=== PATIENT | female | born 1985 | race Caucasian/White ===

== ENCOUNTER 2016-09-15 10:00 | Inpatient (IN) | payer OTHER ==
--- NOTE | ~2016-09-15 | HP ---
Unit #: [id number] #: [id number] Patient: DIALLO PRATT [id number] [place] [address] [id number] MR#: [id number] NAME: DIALLO PRATT ROOM: P179 Age: 30 Sex: F Admission Date: 09/15/2016 : 1985 Attending Physician: Arnaud Gilbert M.D. Admitting Physician: Arnaud Gilbert M.D. Primary Care Physician: Kymebrly Marinelli M.D. HISTORY AND PHYSICAL HISTORY OF PRESENT ILLNESS Diallo is a 30 year old[facility]. PAST MEDICAL HISTORY 1. 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 2. History of alcohol abuse. 3. Hepatitis C. PAST SURGICAL HISTORY 1. section x1. 2. Tubal ligation. ALLERGIES Tramadol, (seizures). SOCIAL HISTORY Smokes greater than one pack per day, denies alcohol, admits to long history of illicit substance abuse. FAMILY HISTORY Medically noncontributory. REVIEW OF SYSTEMS CONSTITUTIONAL: No fever or chills. HEENT: Denies any sore throat, ear pain or runny nose. CARDIOVASCULAR: Denies chest pain, irregular heart rhythm or palpitations. CHEST: Denies shortness of breath or cough. No hemoptysis. GASTROINTESTINAL: Denies nausea, vomiting, diarrhea or chronic constipation. ENDOCRINE: Denies history of increased thirst or urination. No recent significant weight loss or gain. GENITOURINARY: Denies dysuria, frequency, or hematuria. SKIN: Denies any rashes. HEMATOLOGIC: Denies history of increased bleeding or bruising. MUSCULOSKELETAL: Denies any hot, swollen joints. No generalized muscle pain. NEUROLOGIC: Denies problems with vision or speech. No frequent, severe headaches. No numbness, tingling or weakness in any extremities. Denies loss of bladder or bowel control. CURRENT MEDICATIONS Detox protocol Unit #: [id number] #: [id number] Patient: DIALLO PRATT PHYSICAL EXAMINATION GENERAL: Alert, well-nourished, no apparent distress. VITAL SIGNS: Blood pressure 100/40, heart rate 80, respirations 16, temperature 98. WEIGHT: 138 pounds. HEIGHT: 5 feet 2 inches. SKIN: Warm and dry without rash or lesion. HEENT: Normocephalic. TMs not viewed. Oral and nasal passages clear. Conjunctivae clear. PERRLA. EOMs intact. NECK: Supple without lymphadenopathy or thyromegaly. HEART: Regular rate and rhythm without murmur. LUNGS: Clear. ABDOMEN: Soft, nontender. : Not done. EXTREMITIES: No evidence of cyanosis, clubbing or edema. Moves all without focal deficit. NEUROLOGICAL: Grossly within normal limits. Cranial Nerves: II: Visual shore are intact. III, IV AND : Extraocular movements are intact. Pupils are equal, round and reactive to light. V: Facial sensation is grossly normal. VII: Facial movements and expression are normal. VIII: Auditory acuity grossly intact. IX, X: Uvula is midline. Phonation is normal. XI: Patient shrugs shoulders and turns head normally. XII: Tongue protrudes in the midline. Sensory and Motor Function: Sensory and motor sensation is grossly normal. Motor: moves all extremities well. Coordination: Gait is normal. Deep Tendon Reflexes: Intact. IMPRESSION Psychiatric admission. RECOMMENDATIONS Psychiatric, per psychiatrist. MEDICAL I see no contraindications to participating in facility's activities. MEDICAL PROGNOSIS Good. MEDICAL CONDITION Stable. Dictated by... Emily Salamanca P.A.-C. for Tony Lynn/chelsie TD: 09/16/2016 12:09 JOB #: [id number] Unit #: [id number] #: [id number] Patient: DIALLO PRATT HISTORY AND PHYSICAL Page 1 of 1 X Emily Salamanca HISTORY AND PHYSICAL
--- NOTE | ~2016-09-15 | PN ---
Unit #: [id number] #: [id number] Patient: DIALLO PRATT [id number] [facility] [address] [place] [address] [id number] MR#: [id number] NAME: DIALLO PRATT ROOM: P179 Age: 30 Sex: F Admission Date: 09/15/2016 : 1985 Attending Physician: Arnaud Gilbert M.D. Admitting Physician: Arnaud Gilbert M.D. Primary Care Physician: Tony Randolph PROGRESS NOTES DATE OF SERVICE 09/17/2016 DISCUSSION Ms. Pratt is a 30-year-old white female with substance abuse and mood disorder who was seen today. Chart was reviewed and case was discussed with the staff. She was anxious, withdrawn, in distress and discomfort. Meanwhile, she has been taking the medications and tolerating them fairly well with no reported side effects. MENTAL STATUS EXAMINATION Young white female who is casually dressed with fair personal hygiene, appears to be in slight distress or discomfort. She was awake and alert on interaction with intact orientation. Her mood is anxious with congruent affect. She denies any suicidal ideations. Her insight and judgment remain slightly impaired. TREATMENT PLAN 1. We will continue her on her current medications and treatment protocol. We will monitor her response to the medications and make further adjustments as needed. 2. We will continue to follow up. Dictated by... Arnaud Gilbert M.D. IAA/bzg TD: 09/17/2016 11:12 JOB #: [id number] EAN PROGRESS NOTES Page 1 of 1 X Arnaud Gilbert MD PROGRESS NOTE
--- NOTE | ~2016-09-15 | PN ---
Unit #: [id number] #: [id number] Patient: DIALLO PRATT [id number] [facility] [address] [place] [address] [id number] I MR#: [id number] NAME: DIALLO PRATT ROOM: P179 Age: 30 Sex: F Admission Date: 09/15/2016 : 1985 Attending Physician: Arnaud Gilbert M.D. Admitting Physician: Arnaud Gilbert M.D. Primary Care Physician: Kymberly Marinelli M.D. PEAEM PROGRESS NOTES DATE September 16, 2016 DISCUSSION Ms. Pratt is a 30-year-old white female, with substance abuse, and mood disorder, who was seen today and chart was reviewed and the case was discussed with the staff. She remains anxious, withdrawn, depressed, seclusive to herself, and reports not feeling good and has been complaining of feelings of hopelessness and helplessness and significant withdrawal. Meanwhile, she has been taking the medications and tolerating them fairly well with no reported side effects. MENTAL STATUS EXAMINATION Young white female, who was casually dressed with fair personal hygiene and appears to be distress and discomfort. She was awake and alert with impaired attention and concentration. Her mood is anxious and depressed with a congruent affect. The patient reports having suicidal ideations but denies any homicidal ideations. Her insight and judgment remain significantly impaired. TREATMENT PLAN 1. We will continue her on her current medications and treatment protocol, and will monitor her response to the medications, and make further adjustments as needed. 2. We will continue to followup. Dictated by... Tony Cuevas/chelsie TD: 09/16/2016 11:40 JOB #: [id number] Unit #: [id number] #: [id number] Patient: DIALLO PRATT PEAEM PROGRESS NOTES Page 1 of 1 X Arnaud Gilbert MD PROGRESS NOTE
--- NOTE | ~2016-09-15 | PA ---
Unit #: [id number] #: [id number] Patient: DIALLO PRATT [id number] [facility] [address] [place] [address] [id number] I MR#: [id number] NAME: DIALLO PRATT ROOM: P179 Age: 30 Sex: F Admission Date: 09/15/2016 : 1985 Date of Assessment: 09/15/2016 Attending Physician: Arnaud Gilbert M.D. Admitting Physician: Arnaud Gilbert M.D. Primary Care Physician: Kymberly Marinelli M.D. PSYCHIATRIC ASSESSMENT DATE OF SERVICE 09/15/2016. IDENTIFYING DATA Ms. Wagoner is a 30-year-old single white female, who is a resident of [place], [place], and is known to us from previous encounter, was self-referred to the hospital on a voluntary basis. CHIEF COMPLAINT "I've been feeling really bad and I'm having really bad thoughts." HISTORY OF PRESENT ILLNESS Ms. Wagoner is a 30-year-old white female with extensive history of substance abuse and dependence and mood disorder, who was self-referred to the hospital and stating that she has been really having bad thoughts and "I've not been on my medication for about 9 months. I've been drinking in the last 48 hours. I feel very hopeless and helpless and I've been depressed and feeling really numb and I'm just ready to and just end it, I might as well. I do feel that I'm going to harm myself. I've thoughts about overdosing and shooting myself if I could get hold of someone's gun that would be quickest, I'm ready to just go. I'm just done. I've been like this for 4 years now. I am confused and I'm lost. I'm a piece of shit. I'm over it and nothing goes right with me. I've been like this for years now. I don't like going around people. I feel intimidated. I feel like people are out to get me and I don't get to see my kids. People that they are staying with seems like they are trying to keep me from them and they do not answer my phone calls, it is complicated, about to give up on that too." She does report increasing depression, anxiety, irritability, restlessness, feelings of hopelessness and helplessness, and suicidal ideations and was seen to be a danger to self and as such, recommendation for inpatient level of care for safety and stabilization was made and the patient was transferred to us. SUBSTANCE ABUSE HISTORY The patient reports extensive history of substance abuse and dependence, and reporting alcohol, cannabis, opioids, and benzodiazepine abuse, and has been drinking regularly and heavily and has been mixing it with other drugs, and at the same time, she has been going to her outpatient provider and has been getting prescriptions of Tylenol No. 3 and Adderall and has been mixing them with alcohol and benzodiazepines. PAST PSYCHIATRIC HISTORY The patient has had history of multiple inpatient psychiatric Unit #: [id number] #: [id number] Patient: DIALLO PRATT hospitalizations at [facility] and other facilities and has been diagnosed and treated for mood disorder and substance abuse and currently she has been noncompliant with medications. PAST MEDICAL HISTORY No acute or chronic medical illnesses. ALLERGIES Tramadol. PERSONAL AND SOCIAL HISTORY A 30-year-old white female, who reports that she is single, unemployed, and lives with her family members and has poor social support system. MENTAL STATUS EXAMINATION Young white female who was casually dressed with fair personal hygiene, appears to be in no acute distress or discomfort. She was awake and alert on interaction with intact orientation to time, place, and person. Her mood was anxious and depressed with a congruent affect. Her speech was slow and restricted in content. Her thought processes were disorganized with some looseness of associations and flight of ideas. Her insight and judgment remain significantly impaired. DIAGNOSTIC IMPRESSION Psychiatric: Major depressive disorder, recurrent, moderate, without psychotic features; opioid dependence, moderate and acute withdrawals; alcohol dependence, moderate and acute withdrawals. Medical: None. Stressors: Moderate psychosocial stressors. TREATMENT PLAN 1. The patient has presented with history of substance abuse and mood disorder, and has been decompensating and will need inpatient hospitalization for detoxification, safety, and stabilization. We will start her back on her home medications and detox protocol will be initiated as well, though we will discontinue her Tylenol No. 3 as well as her Adderall, really questioned the need for prescription of those medications and the provider who is prescribing those medications even knows the patient's history of addiction and excessively using opioids and alcohol and benzodiazepines from the street and at the same time, being prescribed Tylenol No. 3 as well as Adderall. 2. Supportive therapy was provided to the patient. ESTIMATED LENGTH OF STAY 5 to 7 days. ABILITY TO HELP SELF Limited. WILLINGNESS TO HELP SELF The patient appears to be willing to help self. STRENGTHS 1. Communicative. 2. Cooperative. PROBLEMS 1. Chronic dysphoric symptoms. 2. Chronic chemical dependency. Unit #: [id number] #: [id number] Patient: DIALLO PRATT 3. Poor social support system. DISCHARGE CRITERIA This will be contingent upon the patient's ability to show resolution of her depression and anxiety and her ability to stay safe to herself, particularly after discharge from the hospital. Dictated by... Tony Cuevas/lizett TD: 09/16/2016 23:36 JOB #: [id number] PSYCHIATRIC ASSESSMENT Page 1 of 1 X Arnaud Gilbert MD X PSYCHIATRIC ASSESSMENT
--- NOTE | ~2016-09-15 | DS ---
Unit #: [id number] #: [id number] [facility] [id number] [facility] [address] [place] [address] [id number] I MR#: [id number] NAME: DAILLO PRATT ROOM: P179 Age: 30 Sex: F Admission Date: 09/15/2016 : 1985 Discharge Date: 09/17/2016 Attending Physician: Arnaud Gilbert M.D. Primary Care Physician: Kymberly Marinelli M.D. DISCHARGE SUMMARY IDENTIFYING DATA Ms. Pratt is a 30-year-old white female who was self-referred to the hospital. DISCHARGE DIAGNOSES Psychiatric: Opioid dependence, moderate and acute withdrawals; alcohol dependence, moderate; opioid-induced mood disorder. Medical: None. Stressors: Moderate psychosocial stressors. HISTORY OF PRESENT ILLNESS Please see initial psychiatric evaluation for details. PAST PSYCHIATRIC HISTORY Please see initial psychiatric evaluation for details. PAST MEDICAL HISTORY Please see initial psychiatric evaluation for details. HOSPITAL COURSE The patient [facility] and was oriented to the hospital environment. Routine p.r.n. medications were initiated, and she was started back on her home medications. Detox protocol was initiated and she was closely monitored. The patient was seen to be anxious, restless, and also showing poor insight into her situation, poor motivation towards treatment and was wanting to leave and pushing to get to be discharged from the hospital, and denying any suicidal ideations, intent, or plan. She was not meeting criteria for involuntary psychiatric hospitalization and as such, it was decided that she will be discharged home and will continue treatment on an outpatient basis. DISCHARGE MEDICATIONS None. DISCHARGE CONDITION Stable. PROGNOSIS Fair. Dictated by... Arnaud Gilbert M.D. Unit #: [id number] #: [id number] Patient: DIALLO PRATT IAA/modl TD: 10/13/2016 13:58 JOB #: [id number] DISCHARGE SUMMARY Page 1 of 1 X Arnaud Gilbert MD X DISCHARGE SUMMARY
[~2016-09-15 10:00] MED LIST: AMOXICILLIN500 M1 PO; AUGMENTIN PO; BIOTIN; IBUPROFEN PO; KEFLEX PO; KLONOPIN PO; LORTAB 7.5-5001 TAB PO; MORPHINE IR PO; NAPROXEN PO; NEURONTIN PO; SEROQUEL PO; VOLTAREN75 MG PO; WELLBUTRIN PO; ZOLOFT PO; [UNRECOGNIZED DRUG - CODE] PO
[2016-09-16 09:43] LABS: BASOPHIL% 0.6 % (0-2.5); EOSINOPHIL# 0.1 X10e3 (0-0.7); HEMATOCRIT 37.5 % (35.0-45.0); HEMOGLOBIN 12.4 gm/dL (12.0-16.0); LYMPHOCYTE# 2.6 X10e3 (1.0-3.5); LYMPHOCYTE% 45.6 % (17.0-45.0); MEAN CELL VOLUME 85.6 FL (83-96); MEAN CORPUSCULAR HEMOGLOBIN 28.3 PG (28-34); MEAN CORPUSCULAR HGB CONC 33.1 g/dL (30-36); MEAN PLATELET VOLUME 8.1 FL (6.5-11.5); MONOCYTE# 0.4 X10e3 (0-1.0); MONOCYTE% 7.4 % (3.0-12.0); NEUTROPHIL# 2.6 X10e3 (1.5-7.1); NEUTROPHIL% 44.4 % (40-75); PLATELET COUNT 280 X10e3 (140-420); RED BLOOD COUNT 4.38 X10e (3.90-5.30); RED CELL DISTRIBUTION WIDTH 13.6 % (11.0-15.5); WHITE BLOOD COUNT 5.8 X10e3 (4.0-10.5)
[2016-09-16 09:49] LABS: DIFF IND NO
[2016-09-16 10:14] LABS: ALBUMIN SERUM 3.7 g/dL (3.5-5.0); BILIRUBIN,TOTAL 0.3 mg/dL (0.2-2.0); CALCIUM SERUM 8.7 mg/dL (8.4-10.2); CREATININE SERUM 0.5 mg/dL (0.6-1.4); GLOM FILT RATE Estimated 129.9 mL/min (>60); POTASSIUM 4.1 mmol/L (3.5-5.1); PROTEIN TOTAL SERUM 6.8 g/dL (6.0-8.3)
[2016-09-17 13:10] LABS: URINE APPEARANCE CLEAR; URINE BILIRUBIN NEG (NEG); URINE BLOOD NEG (NEG); URINE COLOR DK YELLOW; URINE GLUCOSE NEG (NEG); URINE KETONE NEG (NEG); URINE LEUKOCYTE ESTERASE NEG (NEG); URINE NITRATE NEG (NEG); URINE PROTEIN NEG (NEG); URINE SPECIFIC GRAVITY 1.007 (1.003-1.035); URINE UROBILINOGEN 0.2 MG/DL (NEG)
[2016-09-17 13:33] LABS: AMPHETAMINE NEG (NEG); BARBITURATES NEG (NEG); BENZODIAZEPINES POS (NEG); COCAINE NEG (NEG); MARIJUANA NEG (NEG); OPIATES NEG (NEG); TRICYCLIC ANTIDEPRESSANTS NEG (NEG); U METHADONE NEG (NEG)
== END 2016-09-17 13:45 | disposition home or self-care (01) | DRG 885 ==
LOC: P1E 12:38
PROVIDERS: Psychiatry & Neurology Psychiatry
PROC: HZ2ZZZZ Detoxification Services for Substance Abuse Treatment (ICD-10-PCS; principal; 2016-09-15)
DX: F33.1 Major depressive disorder, recurrent, moderate (principal); F10.239 Alcohol dependence with withdrawal, unspecified; F11.23 Opioid dependence with withdrawal; Z88.8 Allergy status to other drugs, medicaments and biological substances; F17.210 Nicotine dependence, cigarettes, uncomplicated
CPT/HCPCS: 80053; 80307; 81003; 84703; 85025; 86592

== ENCOUNTER 2016-10-20 18:00 | Inpatient (IN) | payer OTHER ==
[~2016-10-20] VITALS: Ht 157.5 cm; Wt 69.9 kg
--- NOTE | ~2016-10-20 | PA ---
Unit #: [id number] #: [id number] Patient: DIALLO PRATT [id number] [facility] [place] [address] [id number] MR#: [id number] NAME: DIALLO PRATT ROOM: P202 Age: 30 Sex: F Admission Date: 10/21/2016 : 1985 Date of Assessment: 10/21/2016 Attending Physician: Arnaud Gilbert M.D. Admitting Physician: Arnaud Gilbert M.D. Primary Care Physician: Kymberly Marinelli M.D. PSYCHIATRIC ASSESSMENT DATE OF SERVICE 10/21/2016. IDENTIFYING DATA Ms. Pratt is a 30-year-old single white female, who is a resident of [place], [place], and is very well known to us from previous multiple encounters, was self-referred to the hospital and upon presentation, she stated "I need to be placed back on my medicines." HISTORY OF PRESENT ILLNESS Ms. Pratt is a 30-year-old white female with history of mood disorder and substance abuse and dependence, who was self-referred to herself to the hospital, stating that she needs to be put back on medication that she has been off her medications since she was released from the hospital last time on September 17, 2016. Reports that she has not been on medication and has used opioids several time since she was released from [facility] a month ago and reports that she has been having suicidal thoughts and "I get like this on and off and this is just one of those times right now." She reports being unemployed for almost a year and having poor social support system, financial stressors, significant consequences because of her addiction with feelings of hopelessness and helplessness, and suicidal ideation, stating "I feel dangerous to myself right now." As such, recommendation for inpatient level of care for safety and stabilization was made and the patient was transferred to us. SUBSTANCE ABUSE HISTORY The patient reports history of alcohol and cocaine and opioid abuse and opioids has been her drug of choice. She reports that she has been using several pain pills a day, but also reports that she has been drinking a pint of alcohol on a daily basis but has not had any in the last 3 weeks. PAST PSYCHIATRIC HISTORY The patient has a history of multiple inpatient psychiatric hospitalizations at [facility]. I can review of the medical records indicate that currently she is not active in any treatment program, is not seeing a psychiatrist, and is not taking any psychotropic medications. PAST MEDICAL HISTORY No acute or chronic medical illnesses. ALLERGIES Tramadol. Unit #: [id number] #: [id number] Patient: DIALLO PRATT PERSONAL AND SOCIAL HISTORY A 30-year-old white female, who reports that she is single, unemployed, and has been essentially homeless and has poor social support system. MENTAL STATUS EXAMINATION Young white female, who was casually dressed with fair personal hygiene, appears to be in no acute distress or discomfort. She was awake and alert on interaction with intact orientation. Her mood was anxious with a congruent affect. Her speech was slow and restricted in content. She reports having suicidal ideations, but denies any homicidal ideations, and also denies any auditory or visual hallucinations. Her insight and judgment remain significantly impaired. DIAGNOSTIC IMPRESSION Psychiatric: Bipolar disorder, most recent episode depressed, recurrent, moderate, without psychotic features; alcohol dependence, moderate; opioid dependence, moderate. Medical: None. Stressors: Moderate psychosocial stressors. TREATMENT PLAN 1. The patient has presented with history of mood disorder, and has been decompensating and will need inpatient hospitalization for detoxification and safety, also will need inpatient hospitalization for safety and stabilization. We will start her back on her home medications. We will adjust the medications and monitor response. 2. Supportive therapy was provided to the patient. 3. Safe, structured, and nourishing environment will be provided. ESTIMATED LENGTH OF STAY 5 to 7 days. ABILITY TO HELP SELF Limited. WILLINGNESS TO HELP SELF The patient appears to be willing to help self. STRENGTHS 1. Communicative. 2. Cooperative. PROBLEMS 1. Chronic dysphoric symptoms. 2. Chronic chemical dependency. 3. Poor social support system. DISCHARGE CRITERIA This will be contingent upon the patient's ability to show resolution of her depression and anxiety and her ability to stay safe to herself, particularly after discharge from the hospital. Dictated by... Unit #: [id number] #: [id number] Patient: DIALLO PRATT Tony Cuevas/lizett TD: 10/21/2016 07:35 JOB #: [id number] PSYCHIATRIC ASSESSMENT Page 1 of 1 X Arnaud Gilbert MD PSYCHIATRIC ASSESSMENT
--- NOTE | ~2016-10-20 | PN ---
Unit #: [id number] #: [id number] Patient: DIALLO PRATT [id number] [facility] [address] [place] [address] [id number] I MR#: [id number] NAME: DIALLO PRATT ROOM: P202 Age: 30 Sex: F Admission Date: 10/21/2016 : 1985 Attending Physician: Arnaud Gilbert M.D. Admitting Physician: Arnaud Gilbert M.D. Primary Care Physician: Kymberly Marinelli M.D. PEAEM PROGRESS NOTES DATE October 24, 2016 DISCUSSION Ms. Pratt is a 30-year-old white female, who was seen today and chart was reviewed and the case was discussed with the staff. She has been doing fairly well and has been showing improvement in her depression and anxiety, and has been cooperative with the treatment recommendations and willing to come to the outpatient treatment program when discharged from the hospital. MENTAL STATUS EXAMINATION Young white female, who was casually dressed with fair personal hygiene and appears to be in no acute distress or discomfort. She was awake and alert with intact orientation. Her mood was anxious with a congruent affect. The patient denies any suicidal or homicidal ideations. Her insight and judgment remain slightly impaired. TREATMENT PLAN We will continue her on her current medications and treatment protocol, and will monitor her response to the medications, and make further adjustments as needed. Dictated by... Tony Cuevas/chelsie TD: 10/26/2016 05:04 JOB #: [id number] Unit #: [id number] #: [id number] Patient: DIALLO PRATT PROGRESS NOTES Page 1 of 1 X Arnaud Gilbert MD X PROGRESS NOTE
--- NOTE | ~2016-10-20 | PN ---
Unit #: [id number] #: [id number] Patient: DIALLO PRATT [id number] [facility] [address] [place] [address] [id number] MR#: [id number] NAME: DIALLO PRATT ROOM: P202 Age: 30 Sex: F Admission Date: 10/21/2016 : 1985 Attending Physician: Arnaud Gilbert M.D. Admitting Physician: Arnaud Gilbert M.D. Primary Care Physician: Tony Randolph PROGRESS NOTES DATE OF SERVICE 10/22/2016 DISCUSSION Ms. Pratt is a 30-year-old white female who was seen today. Chart was reviewed and case was discussed with staff. She remains anxious, withdrawn and has been exhibiting med-seeking behavior and asking for benzodiazepines (1) ___ for the anxiety that she claims she has. She denies stating that she has tried that, and either it does not work or it gives a side effects. Meanwhile, she has been coming to therapy groups and has been participating. MENTAL STATUS EXAMINATION Young white female who is casually dressed with fair personal hygiene, appears to be in no acute distress or discomfort. She was awake and alert with intact orientation. Her mood is anxious with congruent affect. She denies any suicidal or homicidal ideations. Her insight and judgment remain slightly impaired. TREATMENT PLAN 1. We will continue her on her current treatment protocol. We will monitor her response to the medications and make further adjustments as needed. 2. We will continue to follow up. Dictated by... Tony Cuevas/owen TD: 10/22/2016 11:32 JOB #: [id number] Unit #: [id number] #: [id number] Patient: DIALLO PRATT EAN PROGRESS NOTES Page 1 of 1 X Arnaud Gilbert MD PROGRESS NOTE
--- NOTE | ~2016-10-20 | PN ---
Unit #: [id number] #: [id number] Patient: DIALLO PRATT [id number] [facility] [address] [place] [address] [id number] MR#: [id number] NAME: DIALLO PRATT ROOM: P202 Age: 30 Sex: F Admission Date: 10/21/2016 : 1985 Attending Physician: Arnaud Gilbert M.D. Admitting Physician: Arnaud Gilbert M.D. Primary Care Physician: Tony Randolph PROGRESS NOTES DATE 10/23/2016 DISCUSSION Ms. Pratt is a 30-year-old white female who was seen today and chart was reviewed and case was discussed with the staff. She has been doing fairly well though still has been exhibiting some drug-seeking behavior and asking for more and more medications. Meanwhile, she has been taking the medication and tolerating them fairly well with no reported side effects. MENTAL STATUS EXAMINATION Young white female who was casually dressed with fair personal hygiene, appears to be in no acute distress or discomfort. She was awake and alert on interaction with intact orientation. Her mood was anxious with congruent affect. She denies any suicidal or homicidal ideations. Her insight and judgement remains slightly impaired. TREATMENT PLAN 1. We will continue her on her current medications and treatment protocol. We will monitor her response and make further adjustments as needed. 2. We will continue to follow up. Dictated by... Tony Cuevas/maurizio TD: 10/25/2016 04:01 JOB #: [id number] Unit #: [id number] #: [id number] Patient: DIALLO PRATT PROGRESS NOTES Page 1 of 1 X Arnaud Gilbert MD PROGRESS NOTE
--- NOTE | ~2016-10-20 | HP ---
Unit #: [id number] #: [id number] Patient: DIALLO PRATT [id number] [place] [address] [id number] MR#: [id number] NAME: DIALLO PRATT ROOM: P202 Age: 30 Sex: F Admission Date: 10/21/2016 : 1985 Attending Physician: Arnaud Gilbert M.D. Admitting Physician: Arnaud Gilbert M.D. Primary Care Physician: Kymberly Marinelli M.D. HISTORY AND PHYSICAL HISTORY OF PRESENT ILLNESS Diallo is a 30 year old admitted to [address] [place] [address] because of her continued drug use. She has had other admissions to this facility for the same. PAST MEDICAL HISTORY 1. 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 2. History of alcohol abuse. 3. Hepatitis C. PAST SURGICAL HISTORY 1. x1. 2. Tubal ligation. ALLERGIES Tramadol (seizures). SOCIAL HISTORY Smokes greater than 1 pack per day. Denies alcohol. Admits to a long history of illicit substance abuse to include IV drugs. FAMILY HISTORY Medically noncontributory. REVIEW OF SYSTEMS CONSTITUTIONAL: No fever or chills. HEENT: Denies any sore throat, ear pain or runny nose. CARDIOVASCULAR: Denies chest pain, irregular heart rhythm or palpitations. CHEST: Denies shortness of breath or cough. No hemoptysis. GASTROINTESTINAL: Denies nausea, vomiting, diarrhea or chronic constipation. ENDOCRINE: Denies history of increased thirst or urination. No recent significant weight loss or gain. GENITOURINARY: Denies dysuria, frequency, or hematuria. SKIN: Denies any rashes. HEMATOLOGIC: Denies history of increased bleeding or bruising. MUSCULOSKELETAL: Denies any hot, swollen joints. No generalized muscle pain. NEUROLOGIC: Denies problems with vision or speech. No frequent, severe headaches. No numbness, tingling or weakness in any extremities. Denies loss of bladder or bowel control. CURRENT MEDICATIONS 1. Nicotine patch 14 mg daily. Unit #: [id number] #: [id number] Patient: DIALLO PRATT 2. Neurontin 800 mg q.i.d. 3. Milk of Magnesia p.r.n. 4. Maalox p.r.n. 5. Tylenol p.r.n. PHYSICAL EXAMINATION GENERAL: Alert, well-nourished, in no apparent distress. VITAL SIGNS: Blood pressure 104/56, heart rate 80, respirations 16, temperature 98.6. WEIGHT: 154. HEIGHT: 5 feet 2 inches. SKIN: Warm and dry without rash or lesion. HEENT: Normocephalic. TMs not viewed. Oral and nasal passages clear. Conjunctivae clear. PERRLA. EOMs intact. NECK: Supple without lymphadenopathy or thyromegaly. HEART: Regular rate and rhythm without murmur. LUNGS: Clear. ABDOMEN: Soft, nontender. : Not done. EXTREMITIES: No evidence of cyanosis, clubbing or edema. Moves all without focal deficit. NEUROLOGICAL: Grossly within normal limits. Cranial Nerves: II: Visual shore are intact. III, IV AND : Extraocular movements are intact. Pupils are equal, round and reactive to light. V: Facial sensation is grossly normal. VII: Facial movements and expression are normal. VIII: Auditory acuity grossly intact. IX, X: Uvula is midline. Phonation is normal. XI: Patient shrugs shoulders and turns head normally. XII: Tongue protrudes in the midline. Sensory and Motor Function: Sensory and motor sensation is grossly normal. Motor: moves all extremities well. Coordination: Gait is normal. Deep Tendon Reflexes: Intact. IMPRESSION Psychiatric admission. RECOMMENDATIONS PSYCHIATRIC: Per psychiatrist. MEDICAL: See no contraindication to participate in facility's activities. MEDICAL PROGNOSIS Good. MEDICAL CONDITION Stable. Dictated by... Emily Salamanca P.A.-C. for Tony Lynn/isabel TD: 10/21/2016 16:43 JOB #: [id number] Unit #: [id number] #: [id number] Patient: DIALLO PRATT HISTORY AND PHYSICAL Page 1 of 1 X Emily Salamanca HISTORY AND PHYSICAL
[2016-10-21 09:35] LABS: BASOPHIL% 0.9 % (0-2.5); EOSINOPHIL# 0.1 X10e3 (0-0.7); HEMATOCRIT 32.9 % (35.0-45.0); HEMOGLOBIN 11.3 gm/dL (12.0-16.0); LYMPHOCYTE# 2.2 X10e3 (1.0-3.5); LYMPHOCYTE% 45.6 % (17.0-45.0); MEAN CELL VOLUME 83.1 FL (83-96); MEAN CORPUSCULAR HEMOGLOBIN 28.6 PG (28-34); MEAN CORPUSCULAR HGB CONC 34.4 g/dL (30-36); MEAN PLATELET VOLUME 7.4 FL (6.5-11.5); MONOCYTE# 0.4 X10e3 (0-1.0); MONOCYTE% 8.2 % (3.0-12.0); NEUTROPHIL# 2.1 X10e3 (1.5-7.1); NEUTROPHIL% 42.3 % (40-75); PLATELET COUNT 303 X10e3 (140-420); RED BLOOD COUNT 3.96 X10e (3.90-5.30); RED CELL DISTRIBUTION WIDTH 13.5 % (11.0-15.5); WHITE BLOOD COUNT 4.9 X10e3 (4.0-10.5)
[2016-10-21 09:40] LABS: DIFF IND NO
[2016-10-21 10:00] LABS: ALBUMIN SERUM 3.5 g/dL (3.5-5.0); BILIRUBIN,TOTAL 0.5 mg/dL (0.2-2.0); BUN/CREATININE RATIO 16.25; CALCIUM SERUM 8.9 mg/dL (8.4-10.2); CREATININE SERUM 0.8 mg/dL (0.6-1.4); POTASSIUM 4.3 mmol/L (3.5-5.1); PROTEIN TOTAL SERUM 6.6 g/dL (6.0-8.3)
[2016-10-22 09:57] LABS: URINE APPEARANCE CLEAR; URINE BILIRUBIN NEG (NEG); URINE BLOOD NEG (NEG); URINE COLOR YELLOW; URINE GLUCOSE NEG (NEG); URINE KETONE NEG (NEG); URINE LEUKOCYTE ESTERASE NEG (NEG); URINE NITRATE NEG (NEG); URINE PROTEIN TRACE (NEG); URINE SPECIFIC GRAVITY 1.012 (1.003-1.035); URINE UROBILINOGEN 0.2 MG/DL (NEG)
[2016-10-22 10:15] LABS: AMPHETAMINE POS (NEG); BARBITURATES NEG (NEG); BENZODIAZEPINES NEG (NEG); COCAINE NEG (NEG); MARIJUANA NEG (NEG); OPIATES POS (NEG); TRICYCLIC ANTIDEPRESSANTS NEG (NEG); U METHADONE NEG (NEG)
== END 2016-10-25 09:52 | DRG 885 ==
LOC: P2S 10-21 02:48
PROVIDERS: Psychiatry & Neurology Psychiatry
PROC: HZ2ZZZZ Detoxification Services for Substance Abuse Treatment (ICD-10-PCS; principal; 2016-10-21)
DX: F31.32 Bipolar disorder, current episode depressed, moderate (principal); F11.20 Opioid dependence, uncomplicated; R45.851 Suicidal ideations; F10.20 Alcohol dependence, uncomplicated; Z88.8 Allergy status to other drugs, medicaments and biological substances; Z86.19 Personal history of other infectious and parasitic diseases; Z98.51 Tubal ligation status; F17.210 Nicotine dependence, cigarettes, uncomplicated
CPT/HCPCS: 80053; 80307; 81003; 84703; 85025